=== PATIENT | male | born 1930 | race Hispanic/Latino ===

== ENCOUNTER 2021-09-11 08:37 | Observation (INO) | payer MEDICARE ==
[~2021-09-11] VITALS: Ht 170.2 cm; Wt 79.3 kg
[2021-09-11 09:14] LABS: MEAN CORPUSCULAR HEMOGLOBIN 30.2 pg (27.0-33.0); MEAN CORPUSCULAR HGB CONC 32.5 g/dL (32.0-36.0); RED BLOOD CELL COUNT(AUTO) 3.87 MIL/uL (4.50-6.20); RED CELL DISTRIBUTION WIDTH 14.1 % (11.0-15.5); WHITE BLOOD COUNT (AUTO) 6.9 K/uL (4.8-10.8)
[2021-09-11] MEDS ORDERED: AEC81 PO (09:29)
[2021-09-11] MEDS ORDERED: CLOP75TA14 PO (09:29)
[2021-09-11] MEDS ORDERED: NITR0.4T50 SL (09:29)
[2021-09-11] MEDS ORDERED: HYDR12.54 PO (09:29)
[2021-09-11] MEDS ORDERED: NAPR-1023 PO (09:29)
[2021-09-11] MEDS ORDERED: TELM20TA8 PO (09:29)
[2021-09-11] MEDS ORDERED: OMEP20CA12 PO (09:29)
[2021-09-11] MEDS ORDERED: ATOR40TA69 PO (09:29)
[2021-09-11] MEDS ORDERED: KCL 20 MEQ ERTAB PO PRN (09:30)
[2021-09-11] MEDS ORDERED: NITROGLYCERIN 0.4 MG SL TAB SL PRN (09:30)
[2021-09-11] MEDS ORDERED: LIDOCAINE HCL-MPF 1% 2ML VIAL IV PRN (09:30)
[2021-09-11] MEDS ORDERED: POTASSIUM CHLORIDE 10% ELIXIR 20 MEQ/15 ML UDCUP PO PRN (09:30)
[2021-09-11] MEDS ORDERED: POTASSIUM CHLORIDE 20MEQ/100ML 100 ML IV PRN (09:30)
[2021-09-11 09:32] LABS: CREATININE 1.7 mg/dL (0.5-1.5)
[2021-09-11] MEDS ORDERED: ATORVASTATIN 40 MG TABLET PO SCH (09:40)
[2021-09-11 09:41] LABS: ALBUMIN 3.6 g/dL (3.5-5.0); BILIRUBIN,DIRECT 0.1 mg/dL (0.0-0.3); BILIRUBIN,TOTAL 0.5 mg/dL (0.2-1.0); TOTAL PROTEIN, SERUM 6.4 g/dL (6.0-8.3)
[2021-09-11] MEDS: LOSARTAN 25 MG TABLET PO SCH (10:02)
[2021-09-11] MEDS: PANTOPRAZOLE 40 MG TAB DR PO SCH (10:02)
[2021-09-11] MEDS: ENOXAPARIN SODIUM 80 MG/0.8 ML SQ SCH ×2 (10:03→20:43)
[2021-09-11] MEDS ORDERED: REGADENOSON 0.4 MG/5 ML PF SYG IVP SCH (11:30)
[2021-09-11 13:45] VITALS: BP 148/66
[2021-09-11 16:00] VITALS: BP 123/60
[2021-09-11] MEDS ORDERED: ACETAMINOPHEN 500 MG TABLET PO PRN (16:00)
[2021-09-11 19:09] VITALS: BP 107/52
[2021-09-11] MEDS: FAMOTIDINE 20MG TAB PO SCH (20:43)
[2021-09-12] VITALS (10 sets, daily range): BP systolic 124–145; BP diastolic 57–84
[2021-09-12 05:44] LABS: MEAN CORPUSCULAR HEMOGLOBIN 30.8 pg (27.0-33.0); MEAN CORPUSCULAR HGB CONC 32.7 g/dL (32.0-36.0); RED BLOOD CELL COUNT(AUTO) 3.51 MIL/uL (4.50-6.20); RED CELL DISTRIBUTION WIDTH 14.1 % (11.0-15.5); WHITE BLOOD COUNT (AUTO) 6.9 K/uL (4.8-10.8)
[2021-09-12 06:27] LABS: ALBUMIN 3.2 g/dL (3.5-5.0); BILIRUBIN,DIRECT 0.1 mg/dL (0.0-0.3); BILIRUBIN,TOTAL 0.3 mg/dL (0.2-1.0); CREATININE 1.6 mg/dL (0.5-1.5); POTASSIUM 3.9 mmol/L (3.5-5.1); TOTAL PROTEIN, SERUM 5.8 g/dL (6.0-8.3)
[2021-09-12] MEDS: PANTOPRAZOLE 40 MG TAB DR PO SCH (07:30)
[2021-09-12] MEDS ORDERED: 1/2 NS 1000ML 1,000 ML IV SCH (08:00)
[2021-09-12] MEDS ORDERED: ASPIRIN 81 MG EC TAB PO SCH (09:00)
[2021-09-12] MEDS: ENOXAPARIN SODIUM 80 MG/0.8 ML SQ SCH (09:00)
[2021-09-12] MEDS ORDERED: CLOPIDOGREL 75MG TAB PO SCH ×2 (09:00)
[2021-09-12] MEDS ORDERED: HYDROCHLOROTHIAZIDE 25 MG TABLET PO SCH (09:00)
[2021-09-12] MEDS ORDERED: ASPIRIN 81MG CHEW TAB PO SCH (09:00)
[2021-09-12] MEDS ORDERED: LIDOCAINE HCL 1% MDV 50ML VIAL ONE (10:27)
[2021-09-12] MEDS ORDERED: NITROGLYCERIN 50MG VIAL ONE (10:27)
[2021-09-12] MEDS ORDERED: IOHEXOL-350 50ML VIAL IV ONE (10:27)
[2021-09-12] MEDS ORDERED: IOHEXOL 350 MG/ML 100ML INFUS..BTL IV ONE (10:27)
[2021-09-12] MEDS ORDERED: BIVALIRUDIN 250 MG/VIAL IV ONE (10:27)
[2021-09-12] MEDS: FAMOTIDINE 20MG TAB PO SCH (11:14)
[2021-09-12] MEDS: LOSARTAN 25 MG TABLET PO SCH (11:15)
[2021-09-12 11:21] LABS: INR 1.09 (0.85-1.15); PROTHROMBIN TIME 11.8 SEC (9.6-11.6)
[2021-09-12 11:22] LABS: PARTIAL THROMBOPLASTIN TIME 32.5 SEC (26.3-35.5)
[2021-09-12] MEDS ORDERED: MIDAZOLAM HCL 1 MG/ML 2ML VIAL ONE (11:36)
[2021-09-12] MEDS ORDERED: FENTANYL CITRATE PF 50 MCG/1 ML 2ML VIAL ONE (11:36)
[2021-09-12] MEDS ORDERED: 0.9%NACL 1000ML 1,000 ML IV SCH (12:30)
[2021-09-12] MEDS ORDERED: ATORVASTATIN 40 MG TABLET PO SCH (21:00)
== END 2021-09-12 17:45 | disposition home or self-care (01) ==
LOC: EDH 08:37 → EDHIP 08:50 → 2DH 14:08 → 3BH 09-12 00:25
PROVIDERS: ADMIT Internal Medicine; ATTEND Internal Medicine
DX: I24.9 Acute ischemic heart disease, unspecified (principal); I10 Essential (primary) hypertension; E86.0 Dehydration; E03.9 Hypothyroidism, unspecified; E78.5 Hyperlipidemia, unspecified; R07.89 Other chest pain; Z79.01 Long term (current) use of anticoagulants; Z79.4 Long term (current) use of insulin; Z79.82 Long term (current) use of aspirin
CPT/HCPCS: 36415 ×2; 78452; 80048 ×2; 80076 ×2; 82550; 83874; 84484; 85027 ×2; 85610; 85730; 93017; 93458; 96372; A9500 ×2; C1760; C1769; C1894 ×3; G0378 ×30; G0379; J1644; J1650 ×2; J2250; J2785; J3010; J3490 ×2; Q9965; Q9967; 96374; 99156; 99157; J0583